=== PATIENT | female | born 1985 | race Hispanic/Latino ===

== ENCOUNTER → 2019-10-24 | Outpatient (CLI) | payer BC ==
[~2019-10-24] MED LIST: OMEP20TA2 PO; ONDA4TAB7 PO; PREN1TAB26 PO; PREN1TAB80 PO
== END | disposition home or self-care (01) ==
LOC: RAH 09:53
PROVIDERS: ATTEND Nurse Practitioner Family
DX: K21.9 Gastro-esophageal reflux disease without esophagitis (principal)
CPT/HCPCS: 74240